=== PATIENT | male | born 1950 | race Caucasian/White ===

== ENCOUNTER 2018-11-16 17:18 | Outpatient (REF) | payer MEDICARE, MEDICAID, SELFPAY ==
[2018-11-16 19:32] LABS: ALT 114 U/L (12-78); AST 44 U/L (15-37); Albumin 3.1 g/dL (3.4-5.0); Alkaline Phosphatase 155 U/L (46-116); Anion Gap 7.2 mmol/L (3-11); BUN 70 mg/dL (7-18); Bilirubin, Total 0.3 mg/dL (0.2-1.0); CO2 30.8 mmol/L (21.0-32.0); CREATININE 1.66 mg/dL (0.70-1.30); Calcium 9.4 mg/dL (8.5-10.1); Chloride 100 mmol/L (98-107); Estimated GFR 41.53 (mL/min/1.73m2); Glucose 252 mg/dL (70-100); Potassium 5.9 mmol/L (3.5-5.1); Sodium 138 mmol/L (136-145); Total Protein 6.6 g/dL (6.4-8.2)
== END 2018-11-16 17:38 ==
LOC: NCHCN 17:18
PROVIDERS: PCP Internal Medicine; Visit Provider Internal Medicine
DX: K21.9 Gastro-esophageal reflux disease without esophagitis (principal); J96.90 Respiratory failure, unspecified, unspecified whether with hypoxia or hypercapnia; E11.9 Type 2 diabetes mellitus without complications; I10 Essential (primary) hypertension
CPT/HCPCS: 80053

== ENCOUNTER 2019-01-11 17:12 | Outpatient (REF) | payer MEDICARE, MEDICAID, SELFPAY ==
[2019-01-11 18:55] LABS: Anion Gap 7.4 mmol/L (3-11); BUN 54 mg/dL (7-18); CO2 33.6 mmol/L (21.0-32.0); CREATININE 1.94 mg/dL (0.70-1.30); Calcium 9.4 mg/dL (8.5-10.1); Chloride 98 mmol/L (98-107); Estimated GFR 34.69 (mL/min/1.73m2); Glucose 123 mg/dL (70-100); Potassium 4.8 mmol/L (3.5-5.1); Sodium 139 mmol/L (136-145)
== END 2019-01-11 17:32 ==
LOC: NCHCN 17:12
PROVIDERS: PCP Internal Medicine; Visit Provider Internal Medicine
DX: I10 Essential (primary) hypertension (principal)
CPT/HCPCS: 80048

== ENCOUNTER 2019-04-04 20:13 | Outpatient (REF) | payer MEDICARE, MEDICAID, SELFPAY ==
[2019-04-04 19:45] LABS: Albumin 3.5 g/dL (3.4-5.0); Anion Gap 7.1 mmol/L (3-11); BUN 18 mg/dL (7-18); CO2 32.9 mmol/L (21.0-32.0); CREATININE 1.33 mg/dL (0.70-1.30); Calcium 8.9 mg/dL (8.5-10.1); Chloride 103 mmol/L (98-107); Estimated GFR 53.63 (mL/min/1.73m2); Glucose 165 mg/dL (70-100); Potassium 4.5 mmol/L (3.5-5.1); Sodium 143 mmol/L (136-145)
== END 2019-04-04 20:33 ==
LOC: NCHCN 20:13
PROVIDERS: PCP Internal Medicine; Visit Provider Internal Medicine
DX: I10 Essential (primary) hypertension (principal); E11.9 Type 2 diabetes mellitus without complications; R60.9 Edema, unspecified
CPT/HCPCS: 80069

== ENCOUNTER 2019-07-09 13:53 | Outpatient (REF) | payer MEDICARE, MEDICAID, SELFPAY ==
[2019-07-09 19:44] LABS: Anion Gap 5.8 mmol/L (3-11); BUN 55 mg/dL (7-18); CO2 36.2 mmol/L (21.0-32.0); CREATININE 2.28 mg/dL (0.70-1.30); Chloride 100 mmol/L (98-107); Estimated GFR 28.71 (mL/min/1.73m2); Glucose 196 mg/dL (70-100); PHOSPHORUS 4.8 mg/dL (2.6-4.7); Potassium 5.1 mmol/L (3.5-5.1); Sodium 142 mmol/L (136-145)
== END 2019-07-09 14:13 ==
LOC: NCHCN 13:53
PROVIDERS: PCP Internal Medicine; Visit Provider Internal Medicine
DX: I10 Essential (primary) hypertension (principal); E11.9 Type 2 diabetes mellitus without complications; E66.9 Obesity, unspecified
CPT/HCPCS: 80069

== ENCOUNTER 2019-08-06 13:36 | Outpatient (REF) | payer MEDICARE, MEDICAID, SELFPAY ==
[2019-08-06 19:29] LABS: Albumin 4.1 g/dL (3.4-5.0); Anion Gap 4.6 mmol/L (3-11); BUN 33 mg/dL (7-18); CO2 37.4 mmol/L (21.0-32.0); CREATININE 1.94 mg/dL (0.70-1.30); Calcium 9.2 mg/dL (8.5-10.1); Chloride 99 mmol/L (98-107); Estimated GFR 34.59 (mL/min/1.73m2); Glucose 177 mg/dL (74-106); PHOSPHORUS 4.3 mg/dL (2.6-4.7); Potassium 4.8 mmol/L (3.5-5.1); Sodium 141 mmol/L (136-145)
== END 2019-08-06 13:56 ==
LOC: NCHCN 13:36
PROVIDERS: PCP Internal Medicine; Visit Provider Internal Medicine
DX: E11.9 Type 2 diabetes mellitus without complications (principal); I10 Essential (primary) hypertension
CPT/HCPCS: 80069

== ENCOUNTER 2020-01-15 10:21 | Outpatient (REF) | payer MEDICARE, MEDICAID, SELFPAY ==
[2020-01-15 19:24] LABS: Hemoglobin A1C 8.2 % (3.8-5.6)
[2020-01-15 19:31] LABS: Anion Gap 4.4 mmol/L (3-11); BUN 38 mg/dL (7-18); CO2 36.6 mmol/L (21.0-32.0); CREATININE 2.01 mg/dL (0.70-1.30); Calcium 8.7 mg/dL (8.5-10.1); Chloride 98 mmol/L (98-107); Glucose 154 mg/dL (74-106); Potassium 4.9 mmol/L (3.5-5.1); Sodium 139 mmol/L (136-145); TSH 0.87 uIU/mL (0.36-3.74)
== END 2020-01-15 10:41 ==
LOC: NCHCN 10:21
PROVIDERS: PCP Internal Medicine; Visit Provider Internal Medicine
DX: E11.9 Type 2 diabetes mellitus without complications (principal); I10 Essential (primary) hypertension
CPT/HCPCS: 80048; 83036; 84439; 84443